=== PATIENT | female | born 1945 | race Caucasian/White ===

== ENCOUNTER 2022-06-11 16:56 | Emergency (ER) | payer OTHER, SELFPAY ==
[2022-06-11 17:00] VITALS: BP 123/79; PULSE 81; RESP 16; TEMP 36.7; O2SAT 97; BMI 28.3
--- NOTE | 2022-06-11 17:46 | EDS_ITS ---
HPI History of Present Illness Chief Complaint: Wound Check Informant: patient Onset/Context/Timing Onset: Weeks (2) Context: Gradual Onset Timing: Continuous Quality of Pain: - (sore) Location: L ankle Current Severity: Mild Maximum Severity: Severe Worsened by: Weight bearing Relieved by: Rest Associated Symptoms Associated Symptoms: Negative for Parasthesia, Weakness or Loss of Funtion Narrative Narrative: Patient states she started with eczema on her left ankle, this developed into painful redness and a sore. She was seen at the ER in [place] and placed on Cipro, and subsequently her Achilles tendon started hurting. This was discontinued, and she was referred to sports medicine who she saw today. They ordered a barrage of cultures from the wound, blood testing, and an ultrasound of her left lower extremity to rule out DVT. From what I am gathering after speaking with the PA who saw the patient today, the patient was not directed to the ER from their office but it seems that the patient went to the restaurant front manager of the hospital and was referred here if she wanted the ultrasound done today emergently, and she would have to come through the ER for that. She denies a history of DVT. She has pain and swelling in the area of the Achilles in the wound but no swelling proximal to this, and her foot distally, or calf pain. No chest pain, shortness of breath, fevers, chills, or other systemic symptoms. She also states she was not given a prescription for a new antibiotic and wonders if she should be taking 1. [facility] Medical History no medical history Home Medications apixaban 5 mg (74 tabs) tablets in a dose pack (Eliquis DVT-PE Treat 30D Start) 5 mg PO BID #74 tabs 06/11/22 [Rx Last Taken Unknown] Allergy/AdvReac Type Severity Reaction Status Date / Time Penicillins Allergy PT UNSURE Verified 06/11/22 17:00 OF REACTION Sulfa (Sulfonamide Allergy PT UNSURE Verified 06/11/22 17:00 Antibiotics) OF REACTION Social History Smoking Status: Never smoker ROS ROS ED Constitutional Constitutional ED: Denies chills or fever(s) Musculoskeletal Musculoskeletal: Reports extremity pain; Denies neck pain Integumentary Reports rash and wounds; Denies Abrasions Neurologic Neurologic: Denies paresthesias or weakness EXAM Physical Exam Const Vital Signs: 06/11/22 17:00 Temperature 98.0 F Temperature Source Temporal Pulse Rate 81 Respiratory Rate 16 Blood Pressure 123/79 H Blood Pressure Mean 93 Pulse Ox 97 Oxygen Delivery Method Room Air Positive well nourished and well developed General Appearance ED: well developed and NAD Neck full ROM and supple Back/Spine normal ROM and normal to inspection Extremity Extremity Narrative: Tender left medial ankle wound and erythema consistent with cellulitis around the wound, there is no drainable abscess and there is a scant amount of serosanguineous discharge from the pinpoint sized opening. She is more tender at the Achilles posteriorly. There is no calf tenderness. No lymphangitis. Neuro oriented x3, no focal motor deficits and no sensory deficits noted Sensorium / Orientation: alert Psych mental status grossly normal and thought process normal Skin Skin Narrative: Wound left ankle and lower leg medially see above Rashes: no rashes MDM MDM MDM Narrative Medical decision making narrative: I did speak with Raheem Cox, one of the PAs at was orthopedic sports medicine he saw the patient today. He agrees it is probably not a DVT but just wanted to have it ruled out. They were okay with trying a dimer first, the patient was as well, so we obtained a D-dimer initially. It was over 6 which is extremely elevated so we went forward in getting the ultrasound, and it actually shows a mid calf DVT. Unsure if this has anything to do with the wound or not, normally these would be monitored with periodic ultrasounds to watch for movement to the trifurcation, which this is below, but since it is associated with a spontaneously occurring what appears to be infectious wound, I am going to treat her and start her on Eliquis. Orthopedics plan was to put her on doxycycline for 2 weeks, we gave her the first dose here and we were going to write her a prescription but they got notification that it was already called into the pharmacy. She is going to follow-up in the office. Lab Data Labs: Laboratory Results - last 24 hr 06/11/22 17:50 D-Dimer Quant (PE/DVT) 6.33 H* Discharge Plan Triage Chief Complaint: Wound Check ED Provider: David Meyer Dx/Rx/DC Orders Clinical Impression: Acute deep vein thrombosis of left lower extremity, Cellulitis of left lower leg Instructions: ED Cellulitis, ED Deep Vein Thrombosis (DVT) Prescriptions: New Eliquis DVT-PE Treat 30D Start 5 mg (74 tabs) tablets,dose pack 5 mg PO BID Qty: 74 0RF Primary Care Provider: Care Physician,No Primary Referrals: Care Physician,No Primary [Primary Care Provider] - Doctor,Your [Non-Staff] - 1-2 Weeks (And orthopedics/sports medicine as scheduled for follow-up) Disposition Disposition: Home, Self Care
[2022-06-11] MEDS: Doxycycline 100 MG CAPSULE PO (18:00)
[2022-06-11 18:34] LABS: D-Dimer Quantitative (DVT/PE) 6.33 FEU/ug/m (0.27-0.49)
--- NOTE | 2022-06-11 18:50 | US_ITS ---
We are attempting to reach an attending provider to discuss findings. An addendum with communication details will be sent when the communication is complete. STUDY: VENOUS DOPPLER ULTRASOUND - LEFT LOWER EXTREMITY REASON FOR EXAM: Female, 76 years old. LEG PAIN AND SWELLING LT LOWER CALF CELLULITIS AND ELEVATED D DIMER TECHNIQUE: Ultrasound evaluation of the deep vein system to include ashley-scale imaging and compression was performed. Ashley-scale imaging and Doppler sonographic evaluation, including duplex spectral analysis and qualitative color flow sonography, was performed. COMPARISON: None. FINDINGS: Common Femoral Vein: Normal compression, spontaneity and augmentation. Normal color Doppler. Common Femoral Vein/Greater Saphenous Junction: Normal compression, spontaneity and augmentation. Normal color Doppler. Superficial Femoral Proximal: Normal compression, spontaneity and augmentation. Normal color Doppler. Superficial Femoral Middle: Normal compression, spontaneity and augmentation. Normal color Doppler. Superficial Femoral Distal: Normal compression, spontaneity and augmentation. Normal color Doppler. Popliteal Vein: Normal compression, spontaneity and augmentation. Normal color Doppler. Posterior Tibial Vein: thrombus Peroneal Vein: Normal compression, spontaneity and augmentation. Normal color Doppler. There is demonstrated deep venous thrombosis. US/Venous Duplex Imag/Limited/Uni IMPRESSION: There is LEFT PTV demonstrated deep venous thrombosis. Critical finding called and case discussed. Electronically Signed: Jaspreet Barnes MD at 19:39 EST ,
[2022-06-11] MEDS: APIXABAN 5 MG TABLET PO (20:01)
== END 2022-06-11 20:02 | disposition home or self-care (01) ==
PROVIDERS: Emergency Provider Emergency Medicine; Visit Provider Emergency Medicine
DX: I82.402 Acute embolism and thrombosis of unspecified deep veins of left lower extremity (principal); L03.116 Cellulitis of left lower limb
CPT/HCPCS: 85379; 87070; 87075; 87205; 93971; 99283

== ENCOUNTER → 2022-06-11 | Outpatient (CLI) | payer OTHER, SELFPAY ==
[2022-06-11 20:43] LABS: Absolute Lymphocyte Count 1.63 X10^3/uL (0.83-4.51); Absolute Neutrophil Count 4.4 X10^3/uL (2.0-7.7); Basophil# 0.04 X10^3/uL; Basophil% 0.6 % (0-1); Eosinophil# 0.05 X10^3/uL; Eosinophils% 0.7 % (0-5); Hematocrit 39.9 % (37-47); Hemoglobin 13.1 g/dL (12.0-15.0); Lymphocyte # 1.63 X10^3/ul (0.83-4.51); Lymphocyte % 24.4 % (19-41); Mean Corp Hgb Conc 32.8 g/dL (32-36); Mean Corpuscular Volume 94.3 fL (81-99); Mean Platelet Vol. 11.2 fl (6.2-12.0); Monocyte# 0.53 X10^3/uL; Monocyte% 7.9 % (0-10); NRBC Flagged by Analyzer 0 % (0-5); Neutrophil # 4.41 X10^3/uL (2.7-7.7); Neutrophil % 66.3 % (47-70); Platelet Count 203 K/mm3 (150-450); RBC Distribution Width CV 13.8 % (11.6-14.6); RBC Distribution Width SD 48.2 fl (35.1-43.9); Red Blood Count 4.23 M/mm3 (4.2-5.4); White Blood Count 6.7 K/mm3 (4.4-11.0)
[2022-06-11 20:59] LABS: Erythrocyte Sedimentation Rate 48 mm/hr (0-30)
== END | disposition home or self-care (01) ==
LOC: LAB 20:26
PROVIDERS: Visit Provider Physician Assistant Surgical
DX: M76.62 Achilles tendinitis, left leg (principal); L03.116 Cellulitis of left lower limb
CPT/HCPCS: 36415; 85025; 85652; 86140; 87070; 87075; 87077; 87186; 87205